=== PATIENT | male | born 1955 | race American Indian/Alaskan Native ===

== ENCOUNTER → 2016-07-23 | Outpatient (CLI) | payer OTHER | LOC: BRMIMAGING 16:34 | PROVIDERS: ATTEND Internal Medicine | DX: M25.522 Pain in left elbow (principal) | CPT/HCPCS: 73080-PO ==

== ENCOUNTER 2016-07-24 17:54 | Emergency (ER) | payer OTHER, MEDICAID ==
[2016-07-24 18:09] VITALS: BP 167/107; PULSE 108; RESP 16; TEMP 98.2; O2SAT 97
--- NOTE | 2016-07-24 18:52 | EDPHY ---
H & P HPI/ROS: CHIEF COMPLAINT: Left elbow pain HISTORY OF PRESENT ILLNESS: This is a 60-year-old male many decades status post ORIF of his left elbow. 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 He has been referred to a [facility] physician who has referred him to physical therapy. He is wearing an elbow brace. He has a sensation of the pin protruding. He is requesting pain medication. He is taking ibuprofen 600 mg. No new injury. No fever, redness, warmth, or swelling. He saw his [employer] [facility] physician yesterday and had x- rays done. REVIEW OF SYSTEMS: A ten point review of systems was performed and is negative with the exception of the items mentioned in the HPI. Past Medical/Surgical History: Elbow injury status post ORIF in the . Diabetes Hypertension Social History: He is . Smoking Status: Heavy smoker Physical Exam: Focused physical exam was performed. He is alert and oriented. Lungs: Clear to auscultation Heart: Regular rate and rhythm Extremities: He is wearing a brace over his right elbow. The brace was removed. There is no swelling, warmth, or erythema. He is able to flex and extend at the elbow on to flex and extend the wrist on the right. Neuro: 5/ 5 left sandstone splitter strength. Sensation intact to light touch over his left arm. Constitutional: Initial Vital Signs Temperature (C) 36.8 C 07/24/16 18:03 Heart Rate 108 H 07/24/16 18:03 Respiratory Rate 16 07/24/16 18:03 Blood Pressure 167/107 H 07/24/16 18:03 O2 Sat (%) 97 07/24/16 18:03 O2 Delivery Mode Room Air Allergies/Adverse Reactions: No Known Allergies Allergy (Unverified 07/24/16 18:09) Home Medications: Medication Instructions Recorded Hydrocodone/Ibuprofen 1 each PO Q6 #10 tablet 07/24/16 [Hydrocodone-Ibuprofen 5-200 mg] Insulin Pen Needle 07/24/16 Medical Decision Making ED Course/Re-evaluation: I reviewed the x-ray that he recently had done. There is no evidence of acute injury open migration. I do not suspect infection. No signs of cellulitis. He is requesting pain medication, specifically vicoprofen which he has taken in the past. I have agreed to prescribe very small quantity of this medication. He understands that he will need to follow up with his workman's compensation doctor for additional pain medication and treatment. I do not think that he has an acute elbow problem in do not recommend further emergency department evaluation. I did look him up on the [facility] and do not find any prescriptions for opiates in the last few months. Departure - Departure Disposition: Home, Routine, Self-Care Clinical Impression: Elbow pain, left Condition: Good Instructions: Elbow Sprain (ED) Additional Instructions: I reviewed your x-rays and do not see anything alarming. Please contact your primary care physician or your workmen's compensation physician on Tuesday to let them know that you came to the emergency department in need of pain medication. Any additional prescriptions will need to come from your primary care doctor or your workmen's compensation doctor. Referrals: NONE *PRIMARY CARE P,. [Primary Care Provider] - As per Instructions Work Comp Referral [facility] [Outside] - As per Instructions Stand Alone Forms: Narcotic Guidelines Prescriptions: Hydrocodone/Ibuprofen [Hydrocodone-Ibuprofen 5-200 mg] 1 each PO Q6 #10 tablet
== END 2016-07-24 19:22 | disposition home or self-care (01) ==
DX: M25.522 Pain in left elbow (principal); I10 Essential (primary) hypertension; E11.9 Type 2 diabetes mellitus without complications; F17.200 Nicotine dependence, unspecified, uncomplicated; Z79.4 Long term (current) use of insulin